=== PATIENT | female | born 1955 | race Caucasian/White ===

== ENCOUNTER 2021-05-08 17:45 | Inpatient (IN) | payer MEDICARE, OTHER ==
[2021-05-08 18:20] VITALS: BMI 27.3
[2021-05-08] MEDS ORDERED: HYDROcodone/Acetaminophen 5/325 mg Tablet PO PRN (18:41)
[2021-05-08] MEDS ORDERED: Bisacodyl 10 MG SUPP PR PRN (18:47)
[2021-05-08] MEDS: HYDROcodone/Acetaminophen 5/325 mg Tablet PO PRN (22:01)
[2021-05-08] MEDS: Senokot S 8.6-50 MG TAB PO PRN (22:01)
[2021-05-09] MEDS: HYDROcodone/Acetaminophen 5/325 mg Tablet PO PRN ×2 (05:02→18:14)
[2021-05-09 06:31] LABS: Hemoglobin 9.8 g/dL (12.0-16.0); Platelet Count 205 thou/uL (130-400)
[2021-05-09 06:32] LABS: Anion Gap 12 mmol/L (10-20); BUN (Urea Nitrogen) 11 mg/dL (9.8-20.1); Calc. Creatinine Clearance 108 mL/min (70-130); Calcium 8.1 mg/dL (7.8-10.44); Carbon Dioxide 27 mmol/L (23-31); Chloride 100 mmol/L (98-107); Glucose 110 mg/dL (80-115); Potassium 3.8 mmol/L (3.5-5.1); Sodium 135 mmol/L (136-145)
[2021-05-09] MEDS ORDERED: Hydrochlorothiazide 25 MG TAB PO SCH (09:00)
[2021-05-09] MEDS: Multivit, Therapeutic 1 TAB PO SCH (10:23)
[2021-05-09] MEDS: Lisinopril 10 MG TAB PO SCH (10:23)
[2021-05-09] MEDS: Bisacodyl 5 MG TAB PO PRN (10:24)
[2021-05-09] MEDS: Enoxaparin Sodium 40 MG/0.4 ML SYRINGE SC SCH (10:24)
[2021-05-09] MEDS: Oxybutynin ER 5 MG TAB PO SCH (10:25)
[2021-05-09] MEDS: Cholecalciferol 1,000 UNITS (25 MCG) TAB PO SCH (10:26)
[2021-05-09] MEDS: Acetaminophen 500 MG TAB PO PRN (10:26)
[2021-05-10] MEDS: HYDROcodone/Acetaminophen 5/325 mg Tablet PO PRN ×2 (04:50→17:56)
[2021-05-10] MEDS: Senokot S 8.6-50 MG TAB PO PRN ×2 (04:50→22:40)
[2021-05-10 05:55] LABS: Anion Gap 12 mmol/L (10-20); BUN (Urea Nitrogen) 11 mg/dL (9.8-20.1); Calc. Creatinine Clearance 103 mL/min (70-130); Calcium 8.1 mg/dL (7.8-10.44); Carbon Dioxide 28 mmol/L (23-31); Chloride 100 mmol/L (98-107); Glucose 104 mg/dL (80-115); Sodium 136 mmol/L (136-145)
[2021-05-10] MEDS: Cholecalciferol 1,000 UNITS (25 MCG) TAB PO SCH (10:01)
[2021-05-10] MEDS: Multivit, Therapeutic 1 TAB PO SCH (10:01)
[2021-05-10] MEDS: Lisinopril 10 MG TAB PO SCH (10:02)
[2021-05-10] MEDS: Bisacodyl 5 MG TAB PO PRN (10:02)
[2021-05-10] MEDS: Oxybutynin ER 5 MG TAB PO SCH (10:02)
[2021-05-10] MEDS: Enoxaparin Sodium 40 MG/0.4 ML SYRINGE SC SCH (10:03)
[2021-05-10] MEDS: Acetaminophen 500 MG TAB PO PRN (10:03)
[2021-05-10] MEDS: Famotidine 20 MG TAB PO PRN (18:32)
[2021-05-11] MEDS: HYDROcodone/Acetaminophen 5/325 mg Tablet PO PRN ×2 (04:38→15:38)
[2021-05-11 06:30] LABS: Anion Gap 11 mmol/L (10-20); BUN (Urea Nitrogen) 11 mg/dL (9.8-20.1); Calc. Creatinine Clearance 106 mL/min (70-130); Calcium 8.2 mg/dL (7.8-10.44); Carbon Dioxide 28 mmol/L (23-31); Chloride 101 mmol/L (98-107); Glucose 101 mg/dL (80-115); Potassium 4.2 mmol/L (3.5-5.1); Sodium 136 mmol/L (136-145)
[2021-05-11] MEDS: Lisinopril 10 MG TAB PO SCH (08:31)
[2021-05-11] MEDS: Oxybutynin ER 5 MG TAB PO SCH (08:32)
[2021-05-11] MEDS: Cholecalciferol 1,000 UNITS (25 MCG) TAB PO SCH (08:32)
[2021-05-11] MEDS: Multivit, Therapeutic 1 TAB PO SCH (08:32)
[2021-05-11] MEDS: Enoxaparin Sodium 40 MG/0.4 ML SYRINGE SC SCH (10:10)
[2021-05-12] MEDS: HYDROcodone/Acetaminophen 5/325 mg Tablet PO PRN ×4 (06:13→22:09)
[2021-05-12 06:57] LABS: Platelet Count 325 thou/uL (130-400)
[2021-05-12] MEDS ORDERED: Apixaban 2.5 MG TAB PO SCH (09:00)
[2021-05-12] MEDS: Oxybutynin ER 5 MG TAB PO SCH (09:14)
[2021-05-12] MEDS: Lisinopril 10 MG TAB PO SCH (09:14)
[2021-05-12] MEDS: Multivit, Therapeutic 1 TAB PO SCH (09:14)
[2021-05-12] MEDS: Cholecalciferol 1,000 UNITS (25 MCG) TAB PO SCH (09:14)
[2021-05-12] MEDS: traMADol HCl 50 MG TAB PO PRN ×2 (13:45→19:01)
[2021-05-12 13:56] LABS: INR-International Normal Ratio 1.1; Prothrombin Time 14.1 sec (12.0-14.7)
[2021-05-12] MEDS: Famotidine 20 MG TAB PO PRN (18:49)
[2021-05-12] MEDS: Warfarin Sodium 5 MG TAB PO SCH (18:51)
[2021-05-13 05:43] LABS: INR-International Normal Ratio 1.1; Prothrombin Time 14.3 sec (12.0-14.7)
[2021-05-13] MEDS: HYDROcodone/Acetaminophen 5/325 mg Tablet PO PRN ×2 (08:53→21:28)
[2021-05-13] MEDS: Oxybutynin ER 5 MG TAB PO SCH (08:55)
[2021-05-13] MEDS: Multivit, Therapeutic 1 TAB PO SCH (08:56)
[2021-05-13] MEDS: Lisinopril 10 MG TAB PO SCH (08:56)
[2021-05-13] MEDS: Cholecalciferol 1,000 UNITS (25 MCG) TAB PO SCH (08:56)
[2021-05-13] MEDS: Warfarin Sodium 5 MG TAB PO SCH (17:33)
[2021-05-14] MEDS: HYDROcodone/Acetaminophen 5/325 mg Tablet PO PRN ×2 (05:06→11:26)
[2021-05-14 05:27] LABS: INR-International Normal Ratio 1.2; Prothrombin Time 14.9 sec (12.0-14.7)
[2021-05-14] MEDS: Multivit, Therapeutic 1 TAB PO SCH (08:55)
[2021-05-14] MEDS: Enoxaparin Sodium 40 MG/0.4 ML SYRINGE SC SCH (08:55)
[2021-05-14] MEDS: Oxybutynin ER 5 MG TAB PO SCH (08:56)
[2021-05-14] MEDS: Lisinopril 10 MG TAB PO SCH (08:56)
[2021-05-14] MEDS: Cholecalciferol 1,000 UNITS (25 MCG) TAB PO SCH (08:56)
[2021-05-14] MEDS: Famotidine 20 MG TAB PO PRN (16:37)
[2021-05-14] MEDS: Warfarin Sodium 5 MG TAB PO SCH (16:38)
[2021-05-14] MEDS: NIACIN 500 MG PO SCH (20:42)
[2021-05-15] MEDS: HYDROcodone/Acetaminophen 5/325 mg Tablet PO PRN ×2 (00:35→09:49)
[2021-05-15 05:30] LABS: Hemoglobin 9.5 g/dL (12.0-16.0); Platelet Count 400 thou/uL (130-400)
[2021-05-15 05:35] LABS: INR-International Normal Ratio 1.4; Prothrombin Time 17.5 sec (12.0-14.7)
[2021-05-15] MEDS: Enoxaparin Sodium 40 MG/0.4 ML SYRINGE SC SCH (09:34)
[2021-05-15] MEDS: Cholecalciferol 1,000 UNITS (25 MCG) TAB PO SCH (09:35)
[2021-05-15] MEDS: Multivit, Therapeutic 1 TAB PO SCH (09:35)
[2021-05-15] MEDS: Lisinopril 10 MG TAB PO SCH (09:35)
[2021-05-15] MEDS: Oxybutynin ER 5 MG TAB PO SCH (09:35)
[2021-05-15] MEDS: Warfarin Sodium 5 MG TAB PO SCH (17:19)
[2021-05-15] MEDS: NIACIN 500 MG PO SCH (20:46)
[2021-05-16] MEDS: HYDROcodone/Acetaminophen 5/325 mg Tablet PO PRN ×2 (02:38→14:04)
[2021-05-16 05:41] LABS: INR-International Normal Ratio 1.6; Prothrombin Time 18.8 sec (12.0-14.7)
[2021-05-16] MEDS: Cholecalciferol 1,000 UNITS (25 MCG) TAB PO SCH (08:51)
[2021-05-16] MEDS: Oxybutynin ER 5 MG TAB PO SCH (08:51)
[2021-05-16] MEDS: Multivit, Therapeutic 1 TAB PO SCH (08:51)
[2021-05-16] MEDS: Enoxaparin Sodium 40 MG/0.4 ML SYRINGE SC SCH (08:51)
[2021-05-16] MEDS: Lisinopril 10 MG TAB PO SCH (08:52)
[2021-05-16] MEDS: Senokot S 8.6-50 MG TAB PO PRN (09:02)
[2021-05-16] MEDS: Warfarin Sodium 5 MG TAB PO SCH (18:10)
[2021-05-16] MEDS: NIACIN 500 MG PO SCH (20:42)
[2021-05-17 06:25] LABS: INR-International Normal Ratio 1.9; Prothrombin Time 21.9 sec (12.0-14.7)
[2021-05-17] MEDS: Lisinopril 10 MG TAB PO SCH (09:46)
[2021-05-17] MEDS: Enoxaparin Sodium 40 MG/0.4 ML SYRINGE SC SCH (09:46)
[2021-05-17] MEDS: Oxybutynin ER 5 MG TAB PO SCH (09:46)
[2021-05-17] MEDS: Multivit, Therapeutic 1 TAB PO SCH (09:46)
[2021-05-17] MEDS: Cholecalciferol 1,000 UNITS (25 MCG) TAB PO SCH (09:46)
[2021-05-17] MEDS: Warfarin Sodium 5 MG TAB PO SCH (17:43)
[2021-05-17] MEDS: NIACIN 500 MG PO SCH (20:56)
[2021-05-18 05:04] VITALS: BP 105/68; TEMP 98
[2021-05-18 05:29] LABS: Hemoglobin 10.8 g/dL (12.0-16.0); Platelet Count 497 thou/uL (130-400)
[2021-05-18 05:52] LABS: INR-International Normal Ratio 1.8; Prothrombin Time 20.8 sec (12.0-14.7)
[2021-05-18] MEDS: Famotidine 20 MG TAB PO PRN (06:08)
[2021-05-18] MEDS: HYDROcodone/Acetaminophen 5/325 mg Tablet PO PRN (09:34)
[2021-05-18] MEDS: Oxybutynin ER 5 MG TAB PO SCH (09:35)
[2021-05-18] MEDS: Lisinopril 10 MG TAB PO SCH (09:35)
[2021-05-18] MEDS: Enoxaparin Sodium 40 MG/0.4 ML SYRINGE SC SCH (09:36)
[2021-05-18] MEDS: Cholecalciferol 1,000 UNITS (25 MCG) TAB PO SCH (09:36)
[2021-05-18] MEDS: Multivit, Therapeutic 1 TAB PO SCH (09:36)
== END 2021-05-18 11:30 | disposition home health service (06) | DRG 561 ==
LOC: BURMED 17:45
PROVIDERS: ADMIT Family Medicine; ATTEND Family Medicine
DX: Z47.1 Aftercare following joint replacement surgery (principal); I10 Essential (primary) hypertension; K21.9 Gastro-esophageal reflux disease without esophagitis; Z96.642 Presence of left artificial hip joint; K59.00 Constipation, unspecified; M16.12 Unilateral primary osteoarthritis, left hip; I70.0 Atherosclerosis of aorta; I07.1 Rheumatic tricuspid insufficiency; Z79.01 Long term (current) use of anticoagulants; Z90.49 Acquired absence of other specified parts of digestive tract; Z87.891 Personal history of nicotine dependence; Z79.899 Other long term (current) drug therapy
CPT/HCPCS: 36415; 80048; 82565; 85014; 85018; 85049; 85610; 90471; 90732; G0009; J1650

== ENCOUNTER 2021-09-15 13:05 | Emergency (ER) | payer OTHER, MEDICARE | END 2021-09-15 15:15 | disposition home or self-care (01) | LOC: BURERS 13:05 | DX: S01.81XA Laceration without foreign body of other part of head, initial encounter (principal); I10 Essential (primary) hypertension; W01.0XXA Fall on same level from slipping, tripping and stumbling without subsequent striking against object, initial encounter; Y92.002 Bathroom of unspecified non-institutional (private) residence as the place of occurrence of the external cause | CPT/HCPCS: 12011; 70450; 72125 ==

== ENCOUNTER 2022-03-11 17:45 | Emergency (ER) | payer MEDICARE, OTHER ==
[2022-03-11] MEDS ORDERED: cefTRIAXone\\ROCEPHIN 1 GM VIAL ONE (18:29)
[2022-03-11 18:52] LABS: Hemoglobin 12.2 g/dL (12.0-16.0); Mean Corpuscular HGB CONC 32.4 g/dL (32.0-36.0); Mean Corpuscular Hemoglobin 30.4 pg (27.0-31.0); Mean Corpuscular Volume 93.9 fL (78.0-98.0); Platelet Count 435 thou/uL (130-400); RBC Distribution Width 13.5 % (11.5-14.5); Red Blood Cell (RBC) Count 4.01 mill/uL (4.20-5.40); White Blood Cell (WBC) Count 12.3 thou/uL (4.8-10.8)
[2022-03-11 18:57] LABS: ALT (SGPT) 35 U/L (8-55); AST (SGOT) 33 U/L (5-34); Albumin 3.2 g/dL (3.4-4.8); Alkaline Phosphatase 144 U/L (40-110); Anion Gap 18 mmol/L (10-20); BUN (Urea Nitrogen) 21 mg/dL (9.8-20.1); Bilirubin, Total 0.3 mg/dL (0.2-1.2); Calc. Creatinine Clearance 0 mL/min (70-130); Calcium 8.6 mg/dL (7.8-10.44); Carbon Dioxide 26 mmol/L (23-31); Chloride 96 mmol/L (98-107); Globulin 3.6 g/dL (2.4-3.5); Glucose 107 mg/dL (80-115); Potassium 4.1 mmol/L (3.5-5.1); Protein, Total 6.8 g/dL (5.8-8.1); Sodium 136 mmol/L (136-145)
[2022-03-11 18:58] LABS: Band 16 % (5-11); Eosinophils 3 % (0-10); Lymphocytes 12 % (21-51); MDiff Complete? YES; Metamyelocyte 5 % (0-0); Monocytes 16 % (0-10); Myelocyte 3 % (0-0); Neutrophil 44 % (42-75); Reactive Lymphocytes 1 % (0-10)
== END 2022-03-11 20:30 | disposition home or self-care (01) ==
LOC: BURERS 17:45
DX: L02.31 Cutaneous abscess of buttock (principal); L03.317 Cellulitis of buttock; I10 Essential (primary) hypertension; Z79.899 Other long term (current) drug therapy
CPT/HCPCS: 80053; 83605; 85025; 87040; J0696

== ENCOUNTER 2022-11-20 19:50 | Emergency (ER) | payer MEDICARE, OTHER ==
[2022-11-20] MEDS ORDERED: Ipratropium/Albuterol 3 ML NEB ONE (20:06)
== END 2022-11-20 21:30 | disposition home or self-care (01) ==
LOC: BURERS 19:50
DX: J11.1 Influenza due to unidentified influenza virus with other respiratory manifestations (principal)
CPT/HCPCS: 94640; 96360; J7620